=== PATIENT | male | born 1940 | race Caucasian/White ===

== ENCOUNTER 2017-01-10 08:01 | Inpatient (IN) ==
[2017-01-10] MEDS ORDERED: NS 1,000 ML IV ONE (08:02)
--- NOTE | 2017-01-10 08:43 | PROVIDER DOCUMENTATION ---
HPI-Psychological Disorder - General Chief Complaint: Suicide Attempt Stated Complaint: possible OD Time Seen by Provider: 01/10/17 08:01 Source: patient, EMS Allergies/Adverse Reactions: Patient Allergies Allergy/AdvReac Type Severity Reaction Status Date / Time No Known Allergies Allergy Verified 01/10/17 08:53 Home Medications: Home Medication List Medication Instructions Recorded Confirmed Last Taken Type Aspirin EC 81 mg PO DAILY 10/17/14 01/10/17 07/18/15 History Warfarin [Coumadin] 2.5 mg PO DIRECTED 04/18/15 01/10/17 07/27/15 20:00 History Glimepiride 8 mg PO DAILY 01/04/17 01/10/17 Unknown History Hydrocodone/Acetaminophen [Lortab 1 each PO DAILY PRN 01/04/17 01/10/17 Unknown History 10-325 mg Tablet] Lisinopril/Hydrochlorothiazide 1 each PO DAILY 01/04/17 01/10/17 Unknown History [Lisinopril-Hctz 10-12.5 mg Tab] Metformin HCl [Metformin HCl ER] 1,000 mg PO DAILY 01/04/17 01/10/17 Unknown History Pantoprazole [Protonix] 40 mg PO DAILY@0700 01/04/17 01/10/17 Unknown History Vit C/Vit E/Lutein/Min/Baraga-3 1 each PO DAILY 01/04/17 01/10/17 Unknown History [Ocuvite Softgel] Azithromycin [Azithromycin] 250 mg PO BID 01/10/17 01/10/17 Unknown History - History of Present Illness-Psych Nature of Presenting Problem: EMS reports that pt took 40 pills of Opana pills around midnight last night. The prescription was in 2014, but the was sure there was 40 pills in it. Pt is A&O X 3 with stable vitals when see at ER. Pt reports he was tired of being panic all the time and he is not happy with anything in his life even though nothing specifically bothers him too much. Pt follows commands when seen at ER. Onset/Duration: reports: last night Timing: reports: still present Severity: reports: moderate, severe Situational problems related to:: reports: other (See above) Psychiatric Complaints: reports: depressed, frustrated, ingestion, insomnia, suicidal ideation, other (see above) Substance Use: reports: none/never Previous psych related hospitalizations?: No Similar Symptoms Previously?: No Recently seen or treated by another doctor?: No - Suicidal Ideation Suicide Risk Assessment: male sex, age >65, depressed, chronic illness, panic disorder, psychosis Clinician's estimation of suicide risk?: uncertain risk Suicidal Attempt Method: reports: Overdose Review of Systems - Adult - REVIEW OF SYSTEMS - ADULT Constitutional: reports: no symptoms reported Eyes: reports: no symptoms reported Ears, Nose, Mouth & Throat: reports: no symptoms reported Cardiovascular: reports: no symptoms reported Respiratory: reports: no symptoms reported Gastrointestinal: reports: no symptoms reported Genitourinary: reports: no symptoms reported Musculoskeletal: reports: no symptoms reported Integumentary: reports: no symptoms reported Neurological: reports: no symptoms reported Psychiatric: reports: see HPI, anxiety, depression, emotional problems, insomnia , panic attacks, suicidal thoughts Endocrine: reports: no symptoms reported Hematologic/Lymphatic: reports: no symptoms reported Allergic/Immunologic: reports: no symptoms reported All Other Systems: Reviewed and Negative Past History - Adult - PAST MEDICAL HISTORY-ADULT Review of Records: reports: Old Records Reviewed, Nursing Assessment Review, Medications Reviewed Major Childhood Illnesses: reports: denies history Cardiovascular: reports: CAD, HTN, hyperlipidemia, pacemaker, other (bundle branch) Respiratory: reports: sleep apnea Gastrointestinal: reports: pancreatitis Obstetrical/Gynecological: reports: denies history Genitourinary: reports: kidney disease (renal insuffiency), prostate cancer Musculoskeletal: reports: denies history Neurological: reports: CVA Psychiatric: reports: depression Endocrine/Immune: reports: Diabetes Other Conditions: reports: other (Menieres disease) - PRIOR SURGERIES/PROCEDURES Surgical/Procedure History: reports: cholecystectomy, pacemaker, hernia repair, other (javon eye Sx) - IMMUNIZATION STATUS Childhood Immunizations: UTD Flu Vaccine: UTD - FAMILY HISTORY Family History: reviewed, not pertinent Physical Exam-Psych Focus - Physical Exam-Psych Initial Vital Signs Reviewed: Yes Appearance: appropriate appearance, no apparent distress, no memory impairment, alert, anxious Neurological: alert, calm, anxious Behavior/Eye Contact/Speech: cooperative, good eye contact, normal speech Thoughts/Hallucinations: normal thought pattern, no apparent hallucination, paranoid HENMT: normocephalic/atraumatic, moist mucous membranes, normal ENT inspection, pharynx normal Neck: non-tender, full range of motion, supple, normal inspection Respiratory: chest non-tender, lungs clear, normal breath sounds, no pleuratic chest pain, no respiratory distress, no accessory muscle use Cardiovascular: normal peripheral pulses, regular rate, rhythm, no edema, no gallop, no JVD, no murmur Abdominal Exam: normal bowel sounds, non tender, soft, no organomegaly, no pulsatile mass Back Exam: normal inspection, no CVA tenderness, no vertebral tenderness, CVA tenderness Extremity: normal range of motion, non-tender, normal gait, normal inspection, no pedal edema, no calf tenderness, normal capillary refill Integumentary: normal color, normal turgor, warm/dry Progress - PLAN OF CARE/RESULTS Progress/Plan/Lab Results: Vital Signs - 8 hr 01/10/17 08:45 01/10/17 09:06 Temperature 97.5 F L Pulse Rate 111 H 107 H Respiratory Rate 20 10 L Blood Pressure 174/111 165/80 O2 Sat by Pulse Oximetry 91 L 95 Laboratory Results - last 24 hr 01/10/17 01/10/17 01/10/17 08:26 08:26 08:26 WBC 15.57 H RBC 5.22 Hgb 16.3 Hct 47.1 MCV 90.2 MCH 31.2 H MCHC 34.6 RDW Std Deviation 13.5 Plt Count 183 MPV 10.4 Immature Gran % (Auto) 0.3 Neut % (Auto) 86.5 H Lymph % (Auto) 6.7 L Ellis % (Auto) 5.8 Eos % (Auto) 0.4 Baso % (Auto) 0.3 Immature Gran # (Auto) 0.04 Neut # (Auto) 13.46 H Lymph # (Auto) 1.05 L Ellis # (Auto) 0.91 H Eos # (Auto) 0.07 Baso # (Auto) 0.04 Sodium 140 Potassium 4.1 Chloride 98 Carbon Dioxide 23 L Anion Gap 19 BUN 26 H Creatinine 1.7 H Estimated GFR/1.73 m2 39 BUN/Creatinine Ratio 15 Glucose 205 H Calculated Osmolality 290 Calcium 9.9 Magnesium 1.6 Total Bilirubin 0.29 AST 35 H ALT 34 Alkaline Phosphatase 56 Creatine Kinase 90 Troponin T [id number] Pept Total Protein 7.4 Albumin 4.4 Globulin 3.0 Albumin/Globulin Ratio 1.5 Vitamin B12 Folate 19.9 TSH Free T4 Urine Color Urine Turbidity Urine pH Ur Specific [place] Urine Protein Ur Glucose (Stick) Ur Ketones (Stick) Urine Blood Urine Nitrite Urine Bilirubin Urobilinogen Dipstick Urine Leukocytes Urine WBC (Auto) Urine RBC (Auto) U Epithel Cells (Auto) Urine Bacteria (Auto) Urine Crystals Small Round Cells Urine Casts Urine Yeast-like Cells Salicylates < 3.00 L Acetaminophen < 1.2 L RPR 01/10/17 01/10/17 01/10/17 08:26 08:26 08:26 WBC RBC Hgb Hct MCV MCH MCHC RDW Std Deviation Plt Count MPV Immature Gran % (Auto) Neut % (Auto) Lymph % (Auto) Ellis % (Auto) Eos % (Auto) Baso % (Auto) Immature Gran # (Auto) Neut # (Auto) Lymph # (Auto) Ellis # (Auto) Eos # (Auto) Baso # (Auto) Sodium Potassium Chloride Carbon Dioxide Anion Gap BUN Creatinine Estimated GFR/1.73 m2 BUN/Creatinine Ratio Glucose Calculated Osmolality Calcium Magnesium Total Bilirubin AST ALT Alkaline Phosphatase Creatine Kinase Troponin T 0.011 [id number] Pept Total Protein Albumin Globulin Albumin/Globulin Ratio Vitamin B12 474 Folate TSH 2.53 Free T4 1.50 Urine Color Urine Turbidity Urine pH Ur Specific [place] Urine Protein Ur Glucose (Stick) Ur Ketones (Stick) Urine Blood Urine Nitrite Urine Bilirubin Urobilinogen Dipstick Urine Leukocytes Urine WBC (Auto) Urine RBC (Auto) U Epithel Cells (Auto) Urine Bacteria (Auto) Urine Crystals Small Round Cells Urine Casts Urine Yeast-like Cells Salicylates Acetaminophen RPR NON-REACTIVE 01/10/17 01/10/17 08:26 09:00 WBC RBC Hgb Hct MCV MCH MCHC RDW Std Deviation Plt Count MPV Immature Gran % (Auto) Neut % (Auto) Lymph % (Auto) Ellis % (Auto) Eos % (Auto) Baso % (Auto) Immature Gran # (Auto) Neut # (Auto) Lymph # (Auto) Ellis # (Auto) Eos # (Auto) Baso # (Auto) Sodium Potassium Chloride Carbon Dioxide Anion Gap BUN Creatinine Estimated GFR/1.73 m2 BUN/Creatinine Ratio Glucose Calculated Osmolality Calcium Magnesium Total Bilirubin AST ALT Alkaline Phosphatase Creatine Kinase Troponin T [id number] Pept 436 Total Protein Albumin Globulin Albumin/Globulin Ratio Vitamin B12 Folate TSH Free T4 Urine Color YELLOW Urine Turbidity CLEAR Urine pH 5.0 Ur Specific [place] 1.022 Urine Protein 70 A Ur Glucose (Stick) NEGATIVE Ur Ketones (Stick) NEGATIVE Urine Blood NEGATIVE Urine Nitrite NEGATIVE Urine Bilirubin NEGATIVE Urobilinogen Dipstick NORMAL Urine Leukocytes NEGATIVE Urine WBC (Auto) <10 Urine RBC (Auto) <10 U Epithel Cells (Auto) <10 Urine Bacteria (Auto) NEGATIVE Urine Crystals Not Reportable Small Round Cells Not Reportable Urine Casts GRANULAR PRESENT Urine Yeast-like Cells Not Reportable Salicylates Acetaminophen RPR Orders Category Date Time Status Giordano Cath Insertion ORDERED Care 01/10/17 08:04 Active CHEST-PORTABLE [RAD] Stat Exams 01/10/17 08:02 Taken HEAD W/O CONTRAST [CT] Stat Exams 01/10/17 08:03 Taken ACETAMINOPHEN [TDM] Stat Lab 01/10/17 08:26 Completed BNP [PRO B-NATRIURETIC PEPTIDE] Stat Lab 01/10/17 08:26 Completed CBC WITH ELECTRONIC DIFF [HEME] Stat Lab 01/10/17 08:26 Completed CK PROFILE [SP CHEM] Stat Lab 01/10/17 08:26 Completed COMPREHENSIVE METABOLIC PANEL [CHEM] Stat Lab 01/10/17 08:26 Completed FOLATE Stat Lab 01/10/17 08:26 Completed FREE T4 Stat Lab 01/10/17 08:26 Completed MAGNESIUM [CHEM] Stat Lab 01/10/17 08:26 Completed RPR [SERO] Stat Lab 01/10/17 08:26 Completed SALICYLATES [TDM] Stat Lab 01/10/17 08:26 Completed TROPONIN T Stat Lab 01/10/17 08:26 Completed TSH Stat Lab 01/10/17 08:26 Completed URINALYSIS W/POSS RFLX CULT-1 [URINALYSIS] Stat Lab 01/10/17 09:00 Completed URINE MANUAL MICROSCOPIC [URINALYSIS] Stat Lab 01/10/17 09:00 Completed VITAMIN B12 Stat Lab 01/10/17 08:26 Completed 0.9% Sodium Chloride Inj [Ns] 1,000 ml Med 01/10/17 08:02 Active IV 150 mls/hr EKG [EKG] Stat Ther 01/10/17 08:02 Draft Result Diagrams: 01/10/17 08:26 01/10/17 08:26 - REASSESSMENT Reassessment #1 Time Reassessed: 10:21 Status: other (Called Poison control - suggested 24 hour obs due to Opana is sustened release medication. Will admit.) Departure - Departure Time of Disposition Decision: 10:27 DIAGNOSIS: Overdose Qualifiers: Encounter type: initial encounter Injury intent: intentional self-harm Qualified Code(s): T50.902A - Poisoning by unspecified drugs, medicaments and biological substances, intentional self-harm, initial encounter Disposition: ADMITTED INPATIENT 09 Certified Medical Emergency: Emergent Condition: Stable - Critical Care Note This patient required my direct personal management.: Yes Total Time (mins): 30 Critical Care Statement: This patient required my direct personal management to treat or rule out processes, the absence of which, could potentiallly result in sudden, clinically significant life or limb threatening deterioration.
--- NOTE | 2017-01-10 08:47 | ED EKG INTERP ---
This chart was entered by Taisha Stewart Scribe, acting as scribe for Nica Flower MD. EKG Interpretation - EKG Time of EKG reading by physician:: 08:09 EKG Read and Signed by:: Nica Flower EKG Interpretation (*Must complete 3 of following elements*): Abnormal (rhythm - sinus tachycardia w/ frequent ventricular-paced complexes and w/ occasional premature ventricular complexes) Rate: 112 Comments: RBBB This chart was documented by the indicated scribe, (Taisha Stewart Scribe) and accurately reflects the services I performed and decisions made by me, Nica Flower MD, as attested by the provider's signature.
[2017-01-10 08:49] LABS: BASO% 0.3 % (0.0-0.8); EOS# 0.07 X1000 (0.0-0.7); EOS% 0.4 % (0.0-10.0); HEMATOCRIT 47.1 % (42.0-52.0); HEMOGLOBIN 16.3 g/dL (14.0-18.0); IMM GRAN# 0.04 X1000 (0.0-0.04); IMM GRAN% 0.3 % (0.0-0.5); LYMPH# 1.05 X1000 (1.2-3.4); LYMPH% 6.7 % (20.5-51.1); MANUAL DIFF NEEDED? NO; MCH 31.2 PG (27-31); MCHC 34.6 g/dL (33-37); MCV 90.2 FL (81-99); MONO# 0.91 X1000 (0.11-0.59); MONO% 5.8 % (1.7-9.3); MPV 10.4 FL (7.4-10.4); NEUT% 86.5 % (42.2-75.2); PLT 183 X1000 (130-400); RBC 5.22 XMIL (4.7-6.1)
[2017-01-10 09:15] LABS: AGAP 19; ALBUMIN 4.4 g/dL (3.5-5.0); ALKALINE PHOSPHATASE 56 U/L (32-122); BUN 26 mg/dL (8-22); CALCIUM 9.9 mg/dL (8.8-10.2); CHLORIDE 98 mmol/L (98-107); CK PROFILE 90 U/L (24-204); COSMO 290; GOT 35 U/L (10-34); GPT 34 U/L (10-44); MAGNESIUM 1.6 mg/dL (1.5-2.7); POTASSIUM 4.1 mmol/L (3.5-5.1); SODIUM 140 mmol/L (136-145); TCO2 23 mmol/L (25-35); TOTAL BILIRUBIN 0.29 mg/dL (0.20-1.00); TOTAL PROTEIN 7.4 g/dL (6.3-8.3)
--- NOTE | 2017-01-10 09:30 | EKG Report ---
Test Performed on : 01/10/2017 08:09:17 AM Test Reason : [facility] medical clearance Blood Pressure : / mmHG Vent. Rate : 112 BPM Atrial Rate : 112 BPM P-R Int : 172 ms QRS Dur : 160 ms QT Int : 374 ms P-R-T Axes : -16 232 010 degrees QTc Int : 510 ms Sinus tachycardia. with frequent ventricular-paced complexes and with occasional premature ventricul ar complexes. Right bundle branch block Abnormal ECG When compared with ECG of 04-JAN-2017 13:40, Previous ECG has undetermined rhythm, needs review Unconfirmed Result
[2017-01-10 09:38] LABS: ACETAMINOPHEN < 1.2 ug/mL (10-30)
[2017-01-10 09:40] LABS: URINE CULTURE NEEDED? NO; URINE SOURCE CATH
[2017-01-10 09:43] LABS: BILIRUBIN URINE NEGATIVE (NEGATIVE); BLOOD URINE NEGATIVE (NEGATIVE); COLOR YELLOW; GLUCOSE URINE NEGATIVE (NEGATIVE); LEUKOCYTES URINE NEGATIVE (NEGATIVE); NITRITE URINE NEGATIVE (NEGATIVE); PROTEIN URINE 70 mg/dL (NEGATIVE); SP GRAVITY URINE 1.022; TURBIDITY URINE CLEAR (CLEAR); UROBILINOGEN URINE NORMAL (NORMAL)
[2017-01-10 09:44] LABS: FREE T4 1.5 ng/dL (0.93-1.70)
[2017-01-10 09:46] LABS: URINE MICRO REVIEW NEEDED? YES
[2017-01-10 10:12] LABS: UR EPITHELIAL CELLS <10 /HPF (<10); URINE BACTERIA NEGATIVE /HPF; URINE RBC <10 /HPF (<10); URINE WBC <10 /HPF (<10)
[2017-01-10 10:13] LABS: URINE CASTS GRANULAR PRESENT
--- NOTE | 2017-01-10 11:12 | Diag Imaging Result Document ---
PROCEDURE NAME: CHEST-PORTABLE - 01/10/2017 PORTABLE CHEST: COMPARISON: 01/04/2017. FINDINGS: The lungs are well expanded. The patient has a left-sided pacemaker. The heart is not enlarged. The vessels are not distended. No pneumonia. No pleural effusions identified. IMPRESSION: Negative chest.
--- NOTE | 2017-01-10 11:21 | Diag Imaging Result Document ---
PROCEDURE NAME: HEAD W/O CONTRAST - 01/10/2017 CT BRAIN WITHOUT CONTRAST: COMPARISON: 08/02/2015. FINDINGS: No parenchymal hemorrhage. No epidural or subdural hematoma. No subarachnoid hemorrhage. There are old bilateral lacunes with at least mild microvascular ischemic changes similar to the prior exam. No mass identified on this noncontrasted study. No hydrocephalus. No midline shift. No sinus opacification. IMPRESSION: 1. No hemorrhage. 2. Chronic microvascular ischemic changes and old lacunes.
[2017-01-10 12:28] LABS: ALLEN TEST YES; BE -2.2 mmoll (-3.0-3.0); BLOOD TYPE ARTERIAL; DRAW SITE R RADIAL; METHB 1.5 % (0.0-1.5); O2(CT) 22.7 mL/dL (15.0-23.0); PO2(98.6) 101 mmHg (60-100); SAMPLE BLOOD; SAO2 98.4 % (95.0-100.0); THB 16.8 g/dL (11.5-17.4); pH(98.6) 7.24 (7.35-7.45)
[2017-01-10 12:29] LABS: MODALITY CANNULA
[2017-01-10 12:30] LABS: PCO2(98.6) 63 mmHg (35-45)
--- NOTE | 2017-01-10 13:19 | EKG Report ---
Test Performed on : 01/10/2017 12:59:51 PM Test Reason : paced Blood Pressure : / mmHG Vent. Rate : 114 BPM Atrial Rate : 114 BPM P-R Int : 234 ms QRS Dur : 162 ms QT Int : 362 ms P-R-T Axes : 065 188 016 degrees QTc Int : 498 ms Sinus tachycardia. with 1st degree AV block. with frequent premature ventricular complexes. in [facility]. Right bundle branch block Abnormal ECG When compared with ECG of 10-JAN-2017 08:09, (Unconfirmed) Sinus rhythm. has replaced Electronic ventricular pacemaker Confirmed by Rashad FARIA, Erick Ortega ([id number]) on 01/11/2017 10:08:07 AM
[2017-01-10 13:30] LABS: UR AMPHETAMINES QUAL NONE DETECTED (NONE DETECT); UR BARBITUATES QUAL NONE DETECTED (NONE DETECT); UR BENZODIAZEPIN QUAL NONE DETECTED (NONE DETECT); UR CANNABINOIDS QUAL NONE DETECTED (NONE DETECT); UR COCAINE QUAL NONE DETECTED (NONE DETECT); UR METHADONE QUAL NONE DETECTED (NONE DETECT); UR OPIATES QUAL PRESUMPTIVE POSITIVE (NONE DETECT); UR OXYCODONE QUAL PRESUMPTIVE POSITIVE (NONE DETECT); UR PCP QUAL NONE DETECTED (NONE DETECT)
--- NOTE | 2017-01-10 15:33 | HISTORY AND PHYSICAL ---
HISTORY OF PRESENT ILLNESS: This is a 76-year-old. I think I had seen him in the hospital. He is followed by Dr. Milligan. He was last in the hospital on 07/28/2015, I believe. He has had previous evaluations in between as an outpatient. The report is that he may have taken up to 40 oxymorphone. He does take medicine for chronic pain, but recently he has been having his description of panic attacks. Feels short of breath, feels like there is a fullness in his chest, gets very anxious, and it wakes him up at night. He denies specific chest pain, squeezing, or pressure. No fever or chills. PAST MEDICAL HISTORY: 1. History of pancreatitis. 2. Diabetes mellitus, type 2. 3. Hyperlipidemia. 4. Sick sinus syndrome. He has had dual-chamber pacemaker placement. 5. Hypertension. 6. Paroxysmal atrial fibrillation. 7. History of cerebrovascular accident. 8. Tobacco use. SURGICAL HISTORY: 1. Dual-chamber pacemaker placement. 2. Cholecystectomy. 3. Hernia repair. FAMILY HISTORY: Did not elicit, but from old chart is noncontributory. SOCIAL HISTORY: Patient used to smoke. I am not sure what his status is now. No history of alcohol. PRESENT MEDICATIONS: He is taking oxymorphone for pain. Taking aspirin 81 mg a day. He was on azithromycin, apparently, recently. Glimepiride 8 mg a day. Hydrocodone 10/325 p.r.n. Lisinopril/hydrochlorothiazide 10/12.5 daily. Metformin 1000 mg a day. Protonix 40 mg p.o. daily. Ocuvite soft gel 1 a day. Warfarin 2.5 mg daily. PHYSICAL EXAMINATION: GENERAL: They did not report recent change in diet or appetite. HEENT: Unremarkable. RESPIRATORY: No reports of increased work of breathing or dyspnea, although with these panic attacks he feels a little short of breath. CARDIOVASCULAR: No chest pain, tachycardia, or palpitations reported. ABDOMEN, GASTROINTESTINAL, GENITOURINARY: No complaints. ENDOCRINOLOGIC AND HEMATOLOGIC: No significant history. PHYSICAL EXAMINATION: GENERAL: In the emergency room, he is easily arousable, was sleeping when I came into the room. He is oriented x3. VITAL SIGNS: Temperature 97.5 degrees, pulse 106, respirations 17, blood pressure 187/88. Weight 220 pounds. HEENT: Pupils appeared equal and round. There is no facial drooping. No sign of nystagmus. NECK: CVP less than 6 cm. LUNGS: Clear in all lung hankins. CARDIOVASCULAR: Regular rhythm and rate, without murmur or S3. ABDOMEN: Soft. SKIN: Warm and dry. LABORATORY DATA: White count 15,570, hematocrit 47, platelet count 183,000. Sodium 140, potassium 4.1, chloride 98, BUN 26, creatinine 1.7, blood sugar 205. Liver functions unremarkable. Salicylate was less than 3. Acetaminophen was 1.2. I think urine drug screen is pending. Urinalysis unremarkable. IMAGING: Chest x-ray: Negative chest. Lung hankins are clear by report. Head CT without contrast: No hemorrhage. ASSESSMENT AND PLAN: 1. Drug overdose. Not sure how much he has taken. He may have taken up to 40 of oxymorphone and he looks a little lethargic. Appears to be hemodynamically stable. He does have an underlying history of sick sinus syndrome, although he has a dual-chamber pacemaker and also has a history of paroxysmal atrial fibrillation. So, will watch his blood pressure, give him some fluids, put him in the unit. His respiratory status looks good. 2. History of diabetes mellitus, type 2. We will check pattern sugars to see how he is doing, and put him on a diabetic diet when he is able. 3. Hypertension. 4. History of cerebrovascular accident. I do not see any neurologic deficits at this point. We need to hold his Amaryl and we will check pattern sugars. Follow electrolytes. Will follow his magnesium, check that tomorrow, as well as T4, TSH, B12, and folate. We will go ahead and check an ammonia level, although I doubt that would be elevated. 5. Lastly, his panic attacks and anxiety. We will see how we do once we come off the oxymorphone and see if he might benefit from additional medication such as a serotonin reuptake inhibitor. We need to watch his prothrombin time. He is on Coumadin because of atrial fibrillation, so we will continue his present dose and watch his prothrombin time daily. Will try to move him to the unit. We will give him normal saline at 85 mL an hour and we will go from there. cc: Lemuel Lubin MD
[2017-01-10] MEDS: HUMULIN R SUBQ SCH ×2 (16:35→20:01)
[2017-01-11] MEDS ORDERED: SODIUM CHLORIDE 0.9% 10 ML ONE (06:09)
[2017-01-11] MEDS: PROTONIX PO SCH (06:12)
[2017-01-11] MEDS: HUMULIN R SUBQ SCH ×4 (06:13→22:04)
[2017-01-11 07:18] LABS: BASO% 0.1 % (0.0-0.8); EOS# 0.03 X1000 (0.0-0.7); EOS% 0.2 % (0.0-10.0); HEMATOCRIT 49.5 % (42.0-52.0); HEMOGLOBIN 16.3 g/dL (14.0-18.0); IMM GRAN# 0.06 X1000 (0.0-0.04); IMM GRAN% 0.4 % (0.0-0.5); LYMPH# 0.77 X1000 (1.2-3.4); LYMPH% 5.5 % (20.5-51.1); MANUAL DIFF NEEDED? YES; MCHC 32.9 g/dL (33-37); MCV 94.1 FL (81-99); MONO# 1.09 X1000 (0.11-0.59); MONO% 7.8 % (1.7-9.3); MPV 10.3 FL (7.4-10.4); PLT 153 X1000 (130-400); RBC 5.26 XMIL (4.7-6.1)
[2017-01-11 07:29] LABS: INR 2.28; PROTIME 25.2 Seconds (9.2-11.7); PTT 45.6 Seconds (22.0-36.0)
[2017-01-11 07:36] LABS: ALBUMIN 3.9 g/dL (3.5-5.0); CALCIUM 9.6 mg/dL (8.8-10.2); MAGNESIUM 1.8 mg/dL (1.5-2.7); POTASSIUM 5.3 mmol/L (3.5-5.1); TOTAL BILIRUBIN 0.47 mg/dL (0.20-1.00); TOTAL PROTEIN 6.8 g/dL (6.3-8.3)
[2017-01-11 07:50] LABS: FREE T4 1.26 ng/dL (0.93-1.70)
[2017-01-11 08:04] LABS: BANDS 4 % (0-1); EOS 2 % (1-10); LYMPHS 6 % (21-51); MONO 2 % (1-9)
--- NOTE | 2017-01-11 10:58 | PROGRESS NOTE ---
DATE: 01/11/2017 SUBJECTIVE: Mr. Dai appears comfortable, but then he will go to resting fairly well. He is still on BiPAP. OBJECTIVE: Vital Signs: Temp 99.8 degrees, pulse 106, respirations 20, blood pressure has been 150-196/53. HEENT: Pupils are equal, round. Lungs: Clear in all lung hankins. Cardiovascular exam: Regular rhythm and rate without murmur or S3. He is on a BiPAP. Abdomen: Soft. Skin: Warm and dry. : Urine output was 1400 mL. LAB: White count 13,950, hematocrit 49, platelet count 153,000. Electrolytes: Sodium 143, potassium 5.3, chloride 103, bicarbonate 25, BUN 31, creatinine 2.0. Troponin was 0.038. Thyroid, T4 and TSH look okay. X-RAY: EKG: Right bundle branch block. First-degree AV block. Not much change when compared to yesterday's EKG around the twenty-seventh. ASSESSMENT AND PLAN: 1. Drug overdose. Not sure how much the oxymorphone he took. He is on BiPAP. He is still pretty lethargic. 2. History of sick sinus syndrome. He has a dual chamber pacemaker and has a history of paroxysmal atrial fibrillation. Appears to have paced rhythm with right ventricular pattern. 3. Diabetes mellitus type 2. Continue to follow sugars. Hopefully will wake up and be able to eat some. 4. Hypertension. 5. History of cerebrovascular accident. No new neurologic deficits that I can appreciate. 6. History of panic attacks and anxiety. I will review his medications we want to get him back on. cc: Lemuel Lubin MD
[2017-01-11 11:00] LABS: ALBUMIN 4.1 g/dL (3.5-5.0); CALCIUM 9.6 mg/dL (8.8-10.2); POTASSIUM 5.5 mmol/L (3.5-5.1); TOTAL BILIRUBIN 0.51 mg/dL (0.20-1.00); TOTAL PROTEIN 6.7 g/dL (6.3-8.3)
[2017-01-11] MEDS: COUMADIN PO SCH (20:33)
[2017-01-11] MEDS: ZOFRAN IV PRN (20:34)
[2017-01-11] MEDS ORDERED: ATIVAN PO ONE (23:22)
[2017-01-11] MEDS ORDERED: BLISTEX MEDICATED BERRY LIP BALM TOP PRN (23:26)
[2017-01-12 04:50] LABS: ALLEN TEST YES; BE -2.3 mmoll (-3.0-3.0); BLOOD TYPE ARTERIAL; DRAW SITE R RADIAL; METHB 1.4 % (0.0-1.5); O2(CT) 22.9 mL/dL (15.0-23.0); PCO2(98.6) 65 mmHg (35-45); PO2(98.6) 150 mmHg (60-100); SAMPLE BLOOD; SAO2 99.8 % (95.0-100.0); THB 16.7 g/dL (11.5-17.4); pH(98.6) 7.23 (7.35-7.45)
[2017-01-12 04:51] LABS: MODALITY BI PAP
[2017-01-12 05:25] LABS: BASO% 0.2 % (0.0-0.8); EOS# 0.02 X1000 (0.0-0.7); EOS% 0.1 % (0.0-10.0); HEMATOCRIT 48.4 % (42.0-52.0); IMM GRAN# 0.09 X1000 (0.0-0.04); IMM GRAN% 0.7 % (0.0-0.5); LYMPH# 0.68 X1000 (1.2-3.4); MANUAL DIFF NEEDED? YES; MCH 31.3 PG (27-31); MCHC 33.1 g/dL (33-37); MCV 94.5 FL (81-99); MONO# 0.93 X1000 (0.11-0.59); MONO% 6.8 % (1.7-9.3); MPV 10.5 FL (7.4-10.4); NEUT% 87.2 % (42.2-75.2); PLT 141 X1000 (130-400); RBC 5.12 XMIL (4.7-6.1)
[2017-01-12 05:36] LABS: LYMPHS 8 % (21-51); MONO 4 % (1-9)
[2017-01-12] MEDS: HUMULIN R SUBQ SCH ×4 (06:19→22:19)
[2017-01-12] MEDS: PROTONIX PO SCH (06:21)
[2017-01-12] MEDS: ASPIRIN EC PO SCH (08:19)
[2017-01-12] MEDS: PRINZIDE 10/12.5MG PO SCH (08:19)
[2017-01-12 09:02] LABS: INR 2.27; PROTIME 25.1 Seconds (9.2-11.7)
--- NOTE | 2017-01-12 09:19 | PROGRESS NOTE ---
DATE: 01/12/2017 OBJECTIVE: General: Mr. Dai is awake and alert. He is hungry and is requesting food. He is Breathing comfortably. Vital signs: He remains afebrile with a temperature 98.2 degrees, pulse 104 respirations 14, blood pressure 174/76, CVP less than 6 cm. Lungs: Clear in all lung hankins. Cardiovascular: Regular rhythm and rate without murmurs. : Urine output was about 1 L out yesterday. LABS: White count 13,600, hematocrit 48, platelet count 141,000, sodium 142, potassium 5.5, chloride 103, bicarb 24, BUN 32, creatinine 2.0. Blood sugars 175, 153 and 146. ASSESSMENT: 1. Drug overdose with oxymorphone. Doing better. Breathing is comfortable. He is off BiPAP and is breathing comfortably. Will advance his diet to a soft diet. He complains his mouth is dry. 2. History of sick sinus syndrome. He has a pacemaker. 3. History of paroxysmal atrial fibrillation. He is in paced rhythm. 4. Diabetes mellitus, type 2. Sugars are under good control. Advance his diet. 5. Hypertension. 6. History of cerebrovascular accident. 7. History of panic attacks and anxiety in the past. PLAN/REVIEW OF HIS ORDERS: 1. Right now he is on aspirin. 2. Lorazepam, he gets as needed. 3. Coumadin, he is on 2.5 mg daily. 4. Protonix 40 mg a day. 5. Lisinopril/hydrochlorothiazide combination which is 10/12.5, gets once a day. 6. Blood pressures look good. 7. Blood sugars look good. 8. Advance to soft GI diet. 9. I think we can probably move him to the regular floor. 10. Get some physical therapy involved. cc: Lemuel Lubin MD
[2017-01-12] MEDS: ZOFRAN IV PRN (09:28)
[2017-01-12] MEDS: COUMADIN PO SCH (22:19)
[2017-01-13] MEDS ORDERED: NORCO-10 PO ONE (05:22)
[2017-01-13] MEDS: PROTONIX PO SCH (06:20)
[2017-01-13] MEDS: HUMULIN R SUBQ SCH ×2 (06:34→11:07)
[2017-01-13 06:49] LABS: INR 2.11
[2017-01-13 06:56] LABS: PROTIME 23.2 Seconds (9.2-11.7)
--- NOTE | 2017-01-13 08:40 | EKG Report ---
Test Performed on : 01/11/2017 08:11:52 AM Test Reason : chest pain Blood Pressure : / mmHG Vent. Rate : 105 BPM Atrial Rate : 105 BPM P-R Int : 216 ms QRS Dur : 148 ms QT Int : 358 ms P-R-T Axes : 037 -87 008 degrees QTc Int : 473 ms Sinus tachycardia. with 1st degree AV block. with occasional premature ventricular complexes. Left axis deviation Right bundle branch block Abnormal ECG When compared with ECG of 10-JAN-2017 12:59, (Unconfirmed) No significant change was found Confirmed by Rashad FARIA, Erick Ortega ([id number]) on 01/14/2017 12:42:28 PM
[2017-01-13] MEDS: PRINZIDE 10/12.5MG PO SCH (09:53)
[2017-01-13] MEDS: ASPIRIN EC PO SCH (09:53)
[2017-01-13 13:39] VITALS: BP 133/59
--- NOTE | 2017-01-13 13:47 | DISCHARGE SUMMARY ---
ADMISSION DATE: 01/10/2017 DISCHARGE DATE: 01/13/2017 Mr. Dai was admitted to the hospital on 01/10/2017, and discharged on 01/13/2017. This is a 76- year-old who we had seen in the hospital years ago. He used to be followed by Dr. Milligan. Last in the hospital 07/28/2015. I believe he has had previous evaluations between these as an outpatient. Reportedly had took up to maybe 40 Oxymorphone. He states he is having panic attacks. He is very anxious. He denies suicide intent, just very anxious and frustrated with his situation. He does take medicine for chronic pain and he has had more frequent panic attacks and long history of anxiety. PAST MEDICAL HISTORY: 1. Pancreatitis. 2. Diabetes mellitus type 2. 3. Hyperlipidemia. 4. Sick sinus syndrome. Pacemaker placement. 5. Hypertension. 6. Paroxysmal atrial fibrillation. 7. Cerebrovascular accident. 8. Tobacco use. SURGICAL HISTORY: 1. Dual-chamber pacemaker placement. 2. Cholecystectomy. 3. Hernia repair. HOSPITAL COURSE: The patient used to smoke, he has been eating fairly well. The patient was lethargic. He was a little confused. I put him in the unit for the 1st night and he remained hemodynamically stable. Blood pressure is still with good perfusion. He did wake up. Of course we held any sedating medications and he woke up and was hungry, able to eat regular diet and blood sugars were followed closely and they looked good, and medications adjusted. He felt that he wanted to go home on 01/13/2017. Denied any suicidal attempt or any suicide ambition. Family wanted to take him home on 01/13/2017. DISCHARGE MEDICATIONS: 1. Aspirin 81 mg a day. 2. Prinzide 06/26.5 one a day. 3. He takes Protonix 40 mg a day. 4. He takes his Coumadin on Friday, Friday, and Saturdays. ASSESSMENT AND PLAN: Note that his ProTime looked good at 23 so we will discharge him home and follow up with his primary care. Of note, he seemed to be a little less anxious and less panic attacks in the last couple days by his report. I do recommend that he get primary care and also get Psychiatry or counseling involved at home. He was taking Lortab 10-325. He did not complain much of pain while he was here. We will continue that medication. On his glimepiride, his blood pressure appears well controlled. cc: Lemuel Lubin MD
== END 2017-01-13 16:37 | disposition home or self-care (01) ==
LOC: ED 08:01 → EDIPHOLD 11:15 → ICU 15:16 → 3N 01-12 11:05
PROVIDERS: ATTEND Emergency Medicine